=== PATIENT | male | born 1995 | race Caucasian/White ===

== ENCOUNTER 2024-10-19 14:49 | Emergency (ER) | payer OTHER ==
[2024-10-19 15:47] VITALS: RESP 20; BMI 30.4
[2024-10-19] MEDS ORDERED: BUPRENORPHINE/NALOXONE 2 MG/0.5 MG FILM PACKET ONE (16:11)
[2024-10-19] MEDS: BUPRENORPHINE/NALOXONE 4 MG/1 MG FILM PACKET SL ONE (16:16)
[2024-10-19 17:05] VITALS: BP 146/89; PULSE 72; TEMP 98.5
== END 2024-10-19 17:37 | disposition home or self-care (01) ==
LOC: JER 14:49
DX: F11.10 Opioid abuse, uncomplicated (principal); R68.83 Chills (without fever); R45.0 Nervousness; Z72.820 Sleep deprivation
CPT/HCPCS: 99283-25